=== PATIENT | female | born 1970 | race Caucasian/White ===

== ENCOUNTER 2023-03-10 11:45 | Observation (INO) | payer OTHER, SELFPAY ==
[2023-03-10] VITALS (8 sets, daily range): BP systolic 107–131; BP diastolic 62–78; PULSE 68–79; RESP 16; TEMP 36.1–36.6; O2SAT 95–100
--- NOTE | ~2023-03-10 | CT_ITS ---
EXAMINATION: CT abdomen pelvis w con DATE: 03/10/2023 15:10 INDICATION: Abdominal pain and constipation TECHNIQUE: Computed tomography (CT) of the abdomen and pelvis was performed with 100 mL Omnipaque-350 intravenous contrast. Automated exposure control and iterative reconstruction technique were employe d. The dose-length product was 382.34 mGy-cm. COMPARISON: None FINDINGS: Moderate emphysema at the lung bases. Heart size is normal. No pericardial or pleural effusion. Liver , gallbladder, spleen, pancreas, bilateral adrenal glands and kidneys are normal. Common bile duct me asures up to 10 mm without evident distal obstructing lesion. No intrahepatic biliary ductal dilation . Bowels including the appendix are normal. Bladder, anteverted uterus and bilateral adnexa are unrem arkable. No free intraperitoneal gas or fluid. No pathologically enlarged abdominal or pelvic lymphad enopathy. There is calcified atherosclerosis of the aorta and many of the other arteries. Mild lumbar spondylosis. IMPRESSION: 1. Dilation of the common bile duct which measures up to 10 mm without evident obstructing lesion or intrahepatic biliary ductal dilation. Correlate with liver function tests and if indicated could cons ider MRCP for further evaluation. 2. Moderate emphysema at the lung bases. Reviewed, dictated and finalized at location B. IMPRESSION: 1. Dilation of the common bile duct which measures up to 10 mm without evident obstructing lesion or intrahepatic biliary ductal dilation. Correlate with live r function tests and if indicated could consider MRCP for further evaluation. 2. Moderate emphysema at the lung bases.
--- NOTE | ~2023-03-10 | MR_ITS ---
EXAMINATION: MR MRCP wo/w con/w 3D wo ind DATE: 03/11/2023 08:38 INDICATION: Enlarged common bile duct TECHNIQUE: Magnetic resonance imaging (MRI) of the abdomen was performed without and with 14 mL Multi rosalia intravenous contrast. Sequences included coronal T2-weighted SS-FSE, coronal T2-weighted FS SS- FSE, coronal T2-weighted FS FIESTA, axial T2-weighted FS FIESTA, axial T2-weighted FIESTA, sagittal T 2-weighted SS-FSE, axial T1-weighted dual-echo FSPGR, axial T2-weighted SS-FSE, axial T1-weighted LAV A, axial T2-weighted STIR FSE. Thick-slab T2-weighted FRFSE-XL images were obtained for magnetic reso nance cholangiopancreatography (MRCP). Rotating maximum intensity projection 3-D reconstructions of t he volumetric data were created by the technologist. Postcontrast sequences included a time course of axial T1-weighted LAVA. COMPARISON: CT dated 03/10/2023 FINDINGS: ABDOMEN MRI: Heart size is normal. No pericardial or pleural effusion. Liver, gallbladder, pancreas, bilateral adr enal glands and kidneys are normal. 6 mm splenic cyst. Visualized portions of bowels are unremarkable . No pathologically enlarged abdominal or upper pelvic lymphadenopathy. Bones are unremarkable. ABDOMEN MRCP: No intrahepatic biliary ductal dilation. The common hepatic duct measures 7 mm diameter, decreased fr om 10 mm on the prior CT decreasing to 5 mm at the common bile duct and tapering distally with no maykel dent obstructing stones or masses. No evident cholelithiasis/choledocholithiasis. There is an incompl ete pancreas divisum. IMPRESSION: 1. Decrease in now minimal dilation of the common hepatic duct currently measuring 7 mm with no evide nt obstructing stones or masses. Reviewed, dictated and finalized at location L. IMPRESSION: 1. Decrease in now minimal dilation of the common hepatic duct currently measur ing 7 mm with no evident obstructing stones or masses.
[2023-03-10 13:05] LABS: Basophils Percent Auto 0.6 % (0.2-1.2); Eosinophils Absolute Auto 0.3 K/mm3 (0-0.3); Eosinophils Percent Auto 4.2 % (0-4.4); Hematocrit 39.2 % (37.0-47.0); Hemoglobin 12.5 g/dL (12.0-15.0); Immature Granulocyte Absolute 0.01 K/mm3 (0.00-0.031); Immature Granulocyte Percent A 0.2 % (0-0.5); Lymphocytes Absolute Auto 2.22 K/mm3 (0.9-3.2); Lymphocytes Percent Auto 33.5 % (18.3-44.2); Mean Corpuscular HGB Conc 31.9 g/dl (32-36); Mean Corpuscular Hemoglobin 28.7 pg (26-34); Mean Corpuscular Volume 90.1 fl (80-100); Monocytes Absolute Auto 0.5 K/mm3 (0.1-0.6); Monocytes Percent Auto 6.9 % (2.6-8.5); Neutrophils Absolute Auto 3.6 K/mm3 (1.3-6.7); Neutrophils Percent Auto 54.6 % (45.5-73.1); Platelet Count Result 258 k/mm3 (150-375); Red Blood Count 4.35 M/mm3 (4.2-5.4); Red Cell Distribution Width 14.7 % (11.5-14.5); White Blood Count 6.6 K/mm3 (4.5-10.0)
[2023-03-10 13:12] LABS: Alanine Aminotransferase 16 U/L (6-35); Albumin Level 4.2 g/dL (3.5-5.1); Alkaline Phosphatase 84 U/L (38-126); Anion Gap 2 mmol/L (8-16); Aspartate Amino Transferase 24 U/L (14-36); Bilirubin,Total 0.3 mg/dL (0.2-1.3); Blood Urea Nitrogen 13 mg/dL (7-17); Calcium 8.8 mg/dL (8.4-10.2); Carbon Dioxide 35 mmol/L (22-30); Chloride 100 mmol/L (98-107); Estimated CRCL calculation 80 ml/min; Estimated Glomerular Filt Rate > 60; Glucose 89 mg/dL (65-110); Lipase 40 U/L (23-300); Sodium 137 mmol/L (137-145)
--- NOTE | 2023-03-10 13:20 | ED.ABDPAIN ---
HPI - Abdominal Pain General Chief Complaint: Abdominal Pain Stated Complaint: constipation/strain to pee Time Seen by Provider: 03/10/23 12:17 History of Present Illness HPI narrative: 52-year-old female present to the emergency department for evaluation of constipation and decreased urination. Patient states she has had constipation for the last 5 days. Patient does have increased frequency of constipation over the last few years. Patient has not had follow-up with a GI physician. Patient reports she does drink water. Related Data Home Medications Medication Instructions Recorded Confirmed No Home Medications 03/10/23 03/10/23 Allergies Allergy/AdvReac Type Severity Reaction Status Date / Time codeine Allergy Unknown Unknown Verified 03/10/23 18:10 Review of Systems Review of Systems: All systems reviewed & are unremarkable except as noted in HPI and below PMFSH Social History Social History Smoking status: Never smoker Alcohol intake: never Substance use: never Lack of Transportation: No Lack of Food: Never True Current Housing: I Have Housing Concerned About Future Housing: No Difficulty Paying Gas/Electric Bills: No Difficulty Paying for Meds: No Currently Unemployed: No Education: High School Diploma/GED Difficulty w/ Childcare or Family Care: No Spiritual care concerns: No Exam Narrative: APPEARANCE: Well appearing, no pain, no distress, well-nourished. HEAD: normocephalic, atraumatic. EYES: PERRLA/EOMI, conjunctivae clear. NOSE: Normal no drainage NECK: Supple. No adenopathy, no masses. RESPIRATORY: Airway patent, respirations nonlabored. Clear to auscultation bilaterally, no rales, rhonchi, wheezing. CARDIOVASCULAR: Regular rate and rhythm without murmurs rubs or gallops. ABDOMINAL: Soft, nondistended, normal bowel sounds, mild tenderness MUSCULOSKELETAL: Moves all extremities. Strength/ROM intact, No edema, No calf tenderness. NEURO: Alert. Cranial nerves II through XII intact. Grossly intact SKIN: Warm, dry. Normal Color Course Course Emergency Course: 52-year-old female presented the emergency department for evaluation of abdominal pain. CT scan did show evidence of a dilated common bile duct and did recommend an MRCP. Patient was afebrile with no leukocytosis and stable hemoglobin. Patient did not have any elevation in her lactic acid AST ALT T. bili or alk phos. Discussed case with the hospitalist and patient will be admitted for the MRCP and GI will be consulted as needed. Patient was updated on the plan for admission and further work-up. All questions and concerns were addressed and patient was comfortable with the plan. Vital Signs Vital signs: Vital Signs Temperature 97.9 F 03/10/23 12:08 Pulse Rate 79 03/10/23 12:08 Respiratory Rate 16 03/10/23 12:08 Blood Pressure 108/67 03/10/23 12:08 Pulse Oximetry 95 03/10/23 12:08 Temperature 96.9 F L 03/10/23 18:00 Pulse Rate 73 03/10/23 18:00 Respiratory Rate 16 03/10/23 18:00 Blood Pressure 107/73 03/10/23 18:00 Pulse Oximetry 95 03/10/23 18:00 MDM - Abdominal Pain Differential Diagnosis Differential diagnosis: Likely abdominal pain, acute appendicitis, constipation, diverticulitis, gastroenteritis, pancreatitis and small bowel obstruction Lab Data 03/10/23 12:55 03/10/23 12:55 Labs: Lab Results 03/10/23 03/10/23 Range/Units 12:55 14:06 WBC 6.6 (4.5-10.0) K/mm3 RBC 4.35 (4.2-5.4) M/mm3 Hgb 12.5 (12.0-15.0) g/dL Hct 39.2 (37.0-47.0) % MCV 90.1 (80-100) fl MCH 28.7 (26-34) pg MCHC 31.9 L (32-36) g/dl RDW 14.7 H (11.5-14.5) % Plt Count 258 (150-375) k/mm3 MPV 9.0 (7.4-10.4) fl Immature Gran % (Auto) 0.2 (0-0.5) % Neut % (Auto) 54.6 (45.5-73.1) % Lymph % (Auto) 33.5 (18.3-44.2) % [place] % (Auto) 6.9 (2.6-8.5) % Eos % (Auto) 4.2 (0-4.4) % Baso % (Auto) 0.6 (0
[2023-03-10 14:16] LABS: Appearance Urine Cloudy (Clear); Bacteria Urine Rare /hpf; Bilirubin Urine Negative (Negative); Blood Urine Negative (Negative); Color Urine Yellow (Yellow); Glucose Urine UA Negative (Negative); Ketones Urine Negative (Negative); Leukocyte Esterase Ur Negative LEU/UL (Negative); Nitrate Urine Negative (Negative); Non Pathogenic Casts 0-2; Protein Urine Negative (Negative); RBC Urine 0-2 /hpf (0-2); Specific Grav Ur 1.008 (1.001-1.035); Squamous Epithelial Cell Urine Many /hpf (Few); Urobilinogen Urine 0.2 mg/dL (<2.0)
[2023-03-10 14:35] LABS: Add Urine Microscopic? YES
--- NOTE | 2023-03-10 18:08 | ADMGEN ---
This patient, Kathi Carr, was admitted to 3 [facility] S[facility] Room 312-01 at 1800. Report received from Sandy JACINTO. Patient/family oriented to hospital policies and general routines including ID bracelet, bed and alarms, visiting hours, pain management, procedures, bathroom and other care routines, personal items, smoking policy, room service/diet, and visiting hours. Information on how to activate the Rapid Response Team has been discussed. Patient/Family are encouraged to report perceived risks to care and to ask questions if they do not understand what they are told or what they should do.
--- NOTE | 2023-03-10 21:06 | PC.NURSE ---
pt asking for dinner, stating that the provider told her they were going to put in a regular diet for pt. Call placed to Lor, who confirmed it is okay for pt to eat a regular diet tonight until midnight, then at midnight pt will be NPO for an MRCP tomorrow
--- NOTE | 2023-03-10 21:42 | PM.IMHP ---
H&P: HPI History of Present Illness Date/Time: 03/10/23 20:30 Chief Complaint: Constipation, difficulties urinating. Narrative: This is a 52-year-old female without significant medical problems who presented to the emergency department via private vehicle from home for evaluation of constipation and difficulties urinating. The patient provides the following history. She has suffered from constipation for several years and she seems to be dependent on taking stool softeners and suppositories. She even uses enemas on occasion. Her last good bowel movement was approximately 2 weeks ago and she has not had much results with the aforementioned regimens. She has had some difficulties urinating as well which she believes may be due to the constipation. Her abdomen feels bloated and she reports gaining quite a bit a weight in her abdomen over the last 6 months or so. Vital signs were stable on arrival to the ED. CMP and CBC were pretty unremarkable. Urinalysis was contaminated by squamous cells. CT of the abdomen and pelvis showed dilation of the common bile duct without evident obstructing least in or intrahepatic biliary ductal dilatation. She is being admitted in this setting for GI consultation. No personal or family history of cancer. She has never had a colonoscopy. Review of Systems Review of Systems: Twelve systems were reviewed. No fever, chills, or sweats. No chest pain shortness a breath. Denies GERD and indigestion symptoms. No nausea or vomiting. Appetite has been okay. No dysuria. Except as documented, all other systems were reviewed and are negative. [facility] Past Medical History Medical History (Updated 03/10/23 @ 21:49 by Lor Roa PA-C) No significant past medical history Surgical History Surgical History (Updated 03/10/23 @ 21:46 by Lor Roa PA-C) No history of previous surgery Family History Family History (Updated 03/10/23 @ 21:46 by Lor Roa PA-C) Other Family history non-contributory Social History Social History (Updated 03/10/23 @ 21:47 by Lor Roa PA-C) Social History: Surrogate medical decision maker: Mecca Durand, mother. Code status: Full code. Smoking status: Never smoker Alcohol intake: never Substance use: never Lack of Transportation: No Lack of Food: Never True Current Housing: I Have Housing Concerned About Future Housing: No Difficulty Paying Gas/Electric Bills: No Difficulty Paying for Meds: No Currently Unemployed: No Education: High School Diploma/GED Difficulty w/ Childcare or Family Care: No Spiritual care concerns: No Meds Home Medications and Allergies Home Medications Medication Instructions Recorded Confirmed Type No Home Medications 03/10/23 03/10/23 History Allergies Allergy/AdvReac Type Severity Reaction Status Date / Time codeine Allergy Unknown Unknown Verified 03/10/23 18:10 Vital Signs Vital Signs - 24 hr 03/10/23 12:08 03/10/23 14:51 03/10/23 16:30 Temperature 97.9 F Pulse Rate 79 Respiratory Rate 16 Blood Pressure 108/67 107/62 131/78 Pulse Oximetry 95 100 99 Oxygen Delivery 03/10/23 16:31 03/10/23 16:47 03/10/23 17:04 Temperature Pulse Rate Respiratory Rate Blood Pressure 128/77 Pulse Oximetry 99 96 96 Oxygen Delivery 03/10/23 18:00 03/10/23 18:00 Temperature 96.9 F L Pulse Rate 73 Respiratory Rate 16 Blood Pressure 107/73 Pulse Oximetry 95 Oxygen Delivery Room Air Exam Const: Other: Well-developed, nontoxic-appearing female sitting up in bed in no distress. Weight: 71.8 kg. BMI: 27.2. HENMT: Other: Normocephalic, atraumatic. Nares pain bilaterally. Oral mucosa moist. Eyes: Other: Pupils are reactive. Extraocular motions intact. Sclerae anicteric. Neck: Other: Supple. Resp: Other: Respirations are nonlabored. Lung sounds are a bit diminished at the bases but otherwise
[2023-03-10] MEDS: polyethylene glycoL 3350 17 GM POWD.PACK PO (22:40)
[2023-03-10] MEDS: BISACODYL 10 MG SUPPOSITORY RECTAL (22:41)
[2023-03-11 06:00] VITALS: BP 129/75; PULSE 76; RESP 16; TEMP 35.9; O2SAT 97
[2023-03-11 06:17] LABS: Hematocrit 38.7 % (37.0-47.0); Hemoglobin 12.2 g/dL (12.0-15.0); Mean Corpuscular HGB Conc 31.5 g/dl (32-36); Mean Corpuscular Hemoglobin 28.2 pg (26-34); Mean Corpuscular Volume 89.4 fl (80-100); Mean Platelet Volume 9.5 fl (7.4-10.4); Platelet Count Result 292 k/mm3 (150-375); Red Blood Count 4.33 M/mm3 (4.2-5.4); Red Cell Distribution Width 14.6 % (11.5-14.5); White Blood Count 7.2 K/mm3 (4.5-10.0)
[2023-03-11] MEDS: polyethylene glycoL 3350 17 GM POWD.PACK PO ×2 (08:53→12:05)
[2023-03-11 11:40] LABS: Alanine Aminotransferase 15 U/L (6-35); Albumin Level 3.7 g/dL (3.5-5.1); Alkaline Phosphatase 85 U/L (38-126); Anion Gap 4 mmol/L (8-16); Aspartate Amino Transferase 25 U/L (14-36); Bilirubin,Total 0.2 mg/dL (0.2-1.3); Blood Urea Nitrogen 15 mg/dL (7-17); Calcium 8.6 mg/dL (8.4-10.2); Carbon Dioxide 31 mmol/L (22-30); Chloride 101 mmol/L (98-107); Estimated CRCL calculation 91 ml/min; Estimated Glomerular Filt Rate > 60; Glucose 83 mg/dL (65-110); Magnesium 2.3 mg/dL (1.6-2.3); Potassium 4.3 mmol/L (3.4-5.0); Sodium 136 mmol/L (137-145)
--- NOTE | 2023-03-11 13:56 | PM.IMPN ---
Progress Note: A&P Assessment and Plan (1) Constipation: Qualifiers: Constipation type: chronic idiopathic constipation Qualified Code(s): K59.04 - Chronic idiopathic constipation Code(s): K59.00 - Constipation, unspecified Status: Acute Assessment and Plan: The patient presented to the ED for evaluation of abdominal discomfort, severe constipation, and difficulties urinating. Labs, imaging, EKG, and all reports were personally reviewed. Dependent on laxatives and stool softeners to have a bowel movement this is been an ongoing issue for years. Dulcolax suppository and MiraLax ordered. Enema x1 IV fluid hydration GI consulted as she may benefit from bowel prep and colonoscopy. (2) Abdominal discomfort: Code(s): R10.9 - Unspecified abdominal pain Status: Acute Assessment and Plan: Likely due to constipation (3) Common bile duct dilation: Code(s): K83.8 - Other specified diseases of biliary tract Status: Acute Assessment and Plan: CT of the abdomen and pelvis shows a distended common bile duct without any intrahepatic dilatation. She has vague abdominal discomfort, weight gain, and bloating though her LFTs are within normal limits. MRCP completed and showed Minimal dilation measuring 7 mm without obstructing stone or mass Consult GI and recommendations greatly appreciated. Subjective Date/time seen: 03/11/23 13:56 Interval history: Patient sitting up in bed and doing well today. she has minimal abdominal discomfort. On palpitation she has some right upper quadrant tenderness. She has yet to have a bowel movement. Few denies any nausea vomiting. Review of Systems Review of Systems: All systems reviewed & are unremarkable except as noted in HPI and below Exam Narrative: GENERAL: Comfortable, no acute distress HENMT: moist mucous membranes EYES: EOM intact b/l NECK: no lymphadenopathy RESPIRATORY: clear to auscultation CARDIO: RRR GI: soft, Right upper quadrant tenderness, bowel sounds present SKIN: no rashes EXTREMITIES: no edema, redness or tenderness Objective Data Vital Signs Vital Signs: Vital Signs - 24 hr 03/10/23 14:51 03/10/23 16:30 03/10/23 16:31 Temperature Pulse Rate Respiratory Rate Blood Pressure 107/62 131/78 128/77 Pulse Oximetry 100 99 99 Oxygen Delivery 03/10/23 16:47 03/10/23 17:04 03/10/23 18:00 Temperature 96.9 F L Pulse Rate 73 Respiratory Rate 16 Blood Pressure 107/73 Pulse Oximetry 96 96 95 Oxygen Delivery 03/10/23 18:00 03/10/23 22:00 03/11/23 06:00 Temperature 96.9 F L 96.7 F L Pulse Rate 68 76 Respiratory Rate 16 16 Blood Pressure 113/69 129/75 Pulse Oximetry 99 97 Oxygen Delivery Room Air 03/11/23 08:53 Temperature Pulse Rate Respiratory Rate Blood Pressure Pulse Oximetry Oxygen Delivery Room Air Intake/Output Intake/Output: Intake & Output 03/08/23 03/09/23 03/10/23 03/11/23 23:59 23:59 23:59 23:59 Intake Total 580 360 Balance 580 360 Meds/Results Medications: Active Medications Generic Name Dose Route Start Last Admin Trade Name Freq PRN Reason Stop Dose Admin Bisacodyl 10 mg 03/11/23 07:51 Bisacodyl 10 Mg Suppository RECTAL QAM PRN Constipation Polyethylene Glycol 17 gm 03/11/23 09:00 03/11/23 12:05 Polyethylene Glycol 3350 17 Gm Powd.Pack PO 17 gm TID BEATRIZ Administration Radiology Results: ITS Impressions Abdomen/Pelvis CT 03/10/23 15:12 IMPRESSION: 1. Dilation of the common bile duct which measures up to 10 mm without evident obstructing lesion or intrahepatic biliary ductal dilation. Correlate with liver function tests and if indicated could consider MRCP for further evaluation. 2. Moderate emphysema at the lung bases. MRCP 03/11/23 09:09 IMPRESSION: 1. Decrease in now minimal dilation of the common hepatic duct currently measuring 7
[2023-03-11 14:00] VITALS: BP 116/62; PULSE 74; RESP 16; TEMP 35.6; O2SAT 97
--- NOTE | 2023-03-11 14:55 | WPDGICN ---
Assessment and Plan Assessment and plan (1) Constipation: Qualifiers: Constipation type: chronic idiopathic constipation Qualified Code(s): K59.04 - Chronic idiopathic constipation Code(s): K59.00 - Constipation, unspecified Status: Acute Assessment and Plan: Patient admitted with constipation and abdominal pain on this basis. Plan for MiraLax to be taken on a daily basis as needed for constipation. Metamucil as a stool softener is advised daily. Abdominal pain is improved after having a bowel movement would advise discharge at this time. Given her age of 52 follow-up colonoscopy for screening colonoscopy is advised electively this can be done as an outpatient. (2) Abnormal CT scan: Code(s): R93.89 - Abnormal findings on diagnostic imaging of other specified body structures Status: Acute Assessment and Plan: CT scan in the ER suggested mild nonspecific biliary tract dilatation. This was confirmed to be normal by MRCP. No additional workup warranted LFTs are normal. This likely was a spurious finding. GI Consult Note Consult date/time: 03/11/23 14:55 Reason for consult: Constipation HPI: Kathi Carr is a 52 year old female is a seen in evaluation at the request of the hospitalist service. Patient reports tendency towards constipation. She has had difficulty particularly over the last several weeks. She noticed it associated difficulty with urination. Patient had to strain with urination and also with bowel movements. She had significant abdominal pain. After a bowel movement the pain would resolve itself. Patient went to the emergency room. Because of these complaints she had a CT scan which showed mild nonspecific biliary tract dilatation. They recommended an MRCP which was subsequently performed found to be negative. Patient denies any weight loss. she currently reports having had a bowel movement and feels hungry. Not having eaten recently. Family history noncontributory. She has not had a previous colonoscopy. Review of Systems Review of Systems: Review of systems noncontributory. [facility] Past Medical History Medical History (Updated 03/11/23 @ 14:57 by Sage Dunlap MD) No significant past medical history Surgical History Surgical History (Updated 03/10/23 @ 21:46 by Lor Roa PA-C) No history of previous surgery Family History Family History (Updated 03/10/23 @ 21:46 by Lor Roa PA-C) Other Family history non-contributory Social History Social History (Updated 03/10/23 @ 21:47 by Lor Roa PA-C) Social History: Surrogate medical decision maker: Mecca Durand, mother. Code status: Full code. Smoking status: Never smoker Alcohol intake: never Substance use: never Lack of Transportation: No Lack of Food: Never True Current Housing: I Have Housing Concerned About Future Housing: No Difficulty Paying Gas/Electric Bills: No Difficulty Paying for Meds: No Currently Unemployed: No Education: High School Diploma/GED Difficulty w/ Childcare or Family Care: No Spiritual care concerns: No Meds Home Medications and Allergies Home Medications Medication Instructions Recorded Confirmed Type No Home Medications 03/10/23 03/10/23 History Allergies Allergy/AdvReac Type Severity Reaction Status Date / Time codeine Allergy Unknown Unknown Verified 03/10/23 18:10 Vital Signs Vital Signs - 24 hr 03/10/23 16:30 03/10/23 16:31 03/10/23 16:47 Temperature Pulse Rate Respiratory Rate Blood Pressure 131/78 128/77 Pulse Oximetry 99 99 96 Oxygen Delivery 03/10/23 17:04 03/10/23 18:00 03/10/23 18:00 Temperature 96.9 F L Pulse Rate 73 Respiratory Rate 16 Blood Pressure 107/73 Pulse Oximetry 96 95 Oxygen Delivery Room Air 03/10/23 22:00 03/11/23 06:00 03/11/23 08:53 Temperature 96.9 F L 96.7 F L Pulse Rate 68 76
--- NOTE | 2023-03-11 15:04 | PC.NURSE ---
The patient stated that she was ready to discharge. I notified DON Esparza. Vilma stated that the patient needs to have a witnessed BM before she is able to discharge. The patient states that she is going to leave AMA. I notified DON Esparza. The patient signed AMA form and her IVs were removed. Patient left at 1525.
== END 2023-03-11 15:25 | disposition left against medical advice (07) ==
LOC: ANHED 13:32 → ANH3MEDSUR 17:24
PROVIDERS: Physician Assistant; Admitting Provider Family Medicine; Emergency Provider Emergency Medicine; PCP Family Medicine; Visit Provider Family Medicine
DX: K59.04 Chronic idiopathic constipation (principal); R10.9 Unspecified abdominal pain; K83.8 Other specified diseases of biliary tract; R39.198 Other difficulties with micturition; J43.9 Emphysema, unspecified; R93.89 Abnormal findings on diagnostic imaging of other specified body structures
CPT/HCPCS: 36415; 74177; 74183; 76376; 80053; 81001; 81025; 83605; 83690; 83735; 84443; 85025; 85027; 87086; 99285; A9270; A9577; G0378; G0379; Q9967